=== PATIENT | male | born 1995 | race Caucasian/White ===

== ENCOUNTER 2019-01-31 16:21 | Emergency (ER) | payer MEDICARE ==
[~2019-01-31] VITALS: Ht 170.2 cm; Wt 85.0 kg
[2019-01-31 16:24] VITALS: Ht 170.2 cm; Wt 85.0 kg
[2019-01-31] MEDS ORDERED: ADDERALL 10 MG10 MG PO (16:27)
[2019-01-31] MEDS ORDERED: ULTRAM50 MG PO (17:27)
[2019-01-31 17:47] VITALS: BP 123/79
== END 2019-01-31 17:53 | disposition home or self-care (01) ==
LOC: D.ER 16:21
DX: S80.212A Abrasion, left knee, initial encounter (principal); V28.0XXA Motorcycle driver injured in noncollision transport accident in nontraffic accident, initial encounter; S93.402A Sprain of unspecified ligament of left ankle, initial encounter